=== PATIENT | female | born 1995 | race African-American/Black ===

== ENCOUNTER 2018-09-21 23:08 | Emergency (ER) | payer OTHER, MEDICAID ==
[~2018-09-21] VITALS: Ht 157.5 cm; Wt 90.7 kg
[~2018-09-21 23:08] MED LIST: ACTICIN 5% CREA60 G1 TOP; AMOXICILLIN500 M1 PO; ANAPROX DS550 MG PO; AZITHROMYCIN250 MG PO; BACTROBAN CREAM30 G1 TOP; CIPROFLOXACIN500 M1 PO; DARVOCET-N 1001 EACH PO; DOXYCYCLINE 10100 MG PO; FLAGYL500 MG PO; IBUPROFEN 800800 M1 PO; KEFLEX500 MG PO; NOHOMEMEDICATIONS; TRAMADOL 50 MG50 MG PO
[2018-09-21 23:55] LABS: URINE BILIRUBIN NEGATIVE (Negative); URINE BLOOD NEGATIVE (Negative); URINE CLARITY CLEAR; URINE COLOR YELLOW; URINE GLUCOSE-RANDOM NEGATIVE (Negative); URINE KETONES NEGATIVE (Negative); URINE LEUKOCYTES-REFLEX NEGATIVE (Negative); URINE NITRITE-REFLEX POSITIVE (Negative); URINE PROTEIN NEGATIVE (Negative); URINE SPECIFIC GRAVITY 1.015 (1.005-1.030); URINE UROBILINOGEN 0.2 E.U./dl (0.2-1.0)
[2018-09-22 00:11] LABS: ABSOLUTE BASOPHILS 0.1 thou/uL (0.0-0.2); ABSOLUTE EOSINOPHILS 0.1 thou/uL (0.0-0.7); ABSOLUTE LYMPHOCYTES 2.5 thou/uL (0.8-5.3); ABSOLUTE MONOCYTES 0.4 thou/uL (0.0-1.2); ABSOLUTE NEUTROPHILS 3.8 thou/uL (1.6-8.1); BASOPHILS 1.1 %; EOSINOPHILS 0.8 %; HEMATOCRIT 36.4 % (37.0-47.0); HEMOGLOBIN 12.5 gm/dL (12.0-15.0); LYMPHOCYTES 37.1 %; MCH 31.4 pg (26.0-34.0); MCHC 34.3 g/dL (28.0-37.0); MCV 91.6 fL (80.0-100.0); MONOCYTES 6.3 %; NUCLEATED RBCS 0 /100WBC; PLATELET COUNT* 362 thou/uL (150-400); POLYS 54.7 %; RBC 3.97 mil/uL (4.20-5.00); RDW-CV 13.4 % (10.5-14.5); WBC 6.8 thou/uL (4.0-11.0)
[2018-09-22 00:25] LABS: CALCIUM 8.8 mg/dL (8.5-10.1); CREATININE 0.8 mg/dL (0.6-1.3); POTASSIUM 3.4 mmol/L (3.5-5.1)
[2018-09-22 00:55] LABS: BACTERIA-REFLEX >30 Many /HPF (None Seen); CASTS None Seen /LPF (None Seen); CRYSTALS None Seen /LPF (None Seen); SQUAMOUS >10 Many /LPF (0-3); URINE RBC 0-2 Rare /HPF (0-2); URINE WBC-REFLEX 6-15 Few /HPF (0-5)
[2018-09-22] MEDS ORDERED: NORCO 5-325 TA1 EACH PO (00:59)
[2018-09-22] MEDS ORDERED: ZOFRAN ODT4 MG PO (00:59)
[2018-09-22] MEDS ORDERED: KEFLEX500 M1 PO (00:59)
[2018-09-22] MEDS ORDERED: FLAGYL 250 MG250 MG PO (01:02)
[2018-09-22 01:21] VITALS: BP 135/84
== END 2018-09-22 01:21 | disposition home or self-care (01) ==
LOC: M.ERS 23:08
PROVIDERS: Personal Emergency Response Attendant
DX: N39.0 Urinary tract infection, site not specified (principal); N76.0 Acute vaginitis; B96.89 Other specified bacterial agents as the cause of diseases classified elsewhere; Z98.890 Other specified postprocedural states

== ENCOUNTER 2018-10-26 11:35 | Emergency (ER) | payer OTHER, MEDICAID ==
[~2018-10-26] VITALS: Ht 157.5 cm; Wt 90.7 kg
[~2018-10-26 11:35] MED LIST changes: +FLAGYL 250 MG250 MG PO; +KEFLEX500 M1 PO; +NORCO 5-325 TA1 EACH PO; +ZOFRAN ODT4 MG PO
[2018-10-26 13:17] LABS: INFLUENZA A ANTIGEN None Detected (None Detect); INFLUENZA B ANTIGEN None Detected (None Detect)
[2018-10-26] MEDS ORDERED: KEFLEX500 M1 PO (13:18)
[2018-10-26] MEDS ORDERED: MEDROLDOSEPACK PO (13:19)
[2018-10-26] MEDS ORDERED: PROMETHAZINE V120 ML PO (13:19)
[2018-10-26] MEDS ORDERED: TESSALON PERLE100 MG PO (13:19)
[2018-10-26 13:39] VITALS: BP 127/79
== END 2018-10-26 13:40 | disposition home or self-care (01) ==
LOC: M.ERS 11:35
PROVIDERS: Physician Assistant
DX: J20.9 Acute bronchitis, unspecified (principal); Z98.890 Other specified postprocedural states

== ENCOUNTER 2019-09-13 05:17 | Emergency (ER) | payer OTHER ==
[~2019-09-13] VITALS: Ht 157.5 cm; Wt 95.3 kg
[~2019-09-13 05:17] MED LIST changes: +MEDROLDOSEPACK PO; +PROMETHAZINE V120 ML PO; +TESSALON PERLE100 MG PO
[2019-09-13 06:47] VITALS: BP 108/57
== END 2019-09-13 06:47 | disposition home or self-care (01) ==
LOC: M.ERS 05:17
DX: R10.84 Generalized abdominal pain (principal); R10.31 Right lower quadrant pain; R10.32 Left lower quadrant pain; Z98.890 Other specified postprocedural states

== ENCOUNTER 2020-08-04 09:08 | Emergency (ER) | payer OTHER, MEDICAID ==
[~2020-08-04] VITALS: Ht 157.5 cm; Wt 104.3 kg
[2020-08-04 09:51] LABS: ABSOLUTE BASOPHILS 0.1 thou/uL (0.0-0.2); ABSOLUTE EOSINOPHILS 0.1 thou/uL (0.0-0.7); ABSOLUTE LYMPHOCYTES 1.7 thou/uL (0.8-5.3); ABSOLUTE MONOCYTES 0.4 thou/uL (0.0-1.2); ABSOLUTE NEUTROPHILS 3.4 thou/uL (1.6-8.1); BASOPHILS 1.2 %; EOSINOPHILS 1.1 %; HEMATOCRIT 38.7 % (37.0-47.0); HEMOGLOBIN 12.8 gm/dL (12.0-15.0); LYMPHOCYTES 30.8 %; MCH 29.7 pg (26.0-34.0); MCHC 33.2 g/dL (28.0-37.0); MCV 89.5 fL (80.0-100.0); MONOCYTES 6.5 %; MPV 7.7 fl. (7.2-11.1); NUCLEATED RBCS 0 /100WBC; PLATELET COUNT* 355 thou/uL (150-400); POLYS 60.4 %; RBC 4.32 mil/uL (4.20-5.00); RDW-CV 13.5 % (10.5-14.5); WBC 5.7 thou/uL (4.0-11.0)
[2020-08-04 09:55] LABS: CALCIUM 9.2 mg/dL (8.5-10.1); CREATININE 0.8 mg/dL (0.6-1.3); POTASSIUM 4.2 mmol/L (3.5-5.1)
[2020-08-04 09:57] LABS: URINE BILIRUBIN NEGATIVE (Negative); URINE BLOOD NEGATIVE (Negative); URINE CLARITY CLEAR; URINE COLOR YELLOW; URINE GLUCOSE-RANDOM NEGATIVE (Negative); URINE KETONES NEGATIVE (Negative); URINE LEUKOCYTES-REFLEX NEGATIVE (Negative); URINE NITRITE-REFLEX NEGATIVE (Negative); URINE PROTEIN NEGATIVE (Negative); URINE SPECIFIC GRAVITY 1.025 (1.005-1.030); URINE UROBILINOGEN 0.2 E.U./dl (0.2-1.0)
[2020-08-04 09:59] LABS: ALBUMIN 3.3 g/dL (3.4-5.0); TOTAL BILIRUBIN 0.2 mg/dL (<0.1-1.0); TOTAL PROTEIN 7.4 g/dL (6.4-8.2)
[2020-08-04] MEDS ORDERED: BENTYL 10 MG CA10 M1 PO (10:58)
[2020-08-04] MEDS ORDERED: FLAGYL500 M1 PO (10:58)
[2020-08-04] MEDS ORDERED: ONDANSETRON HCL4 M2 PO (10:58)
[2020-08-04 11:45] VITALS: BP 130/66
== END 2020-08-04 11:48 | disposition home or self-care (01) ==
LOC: M.ERS 09:08
PROVIDERS: Family Medicine
DX: N76.0 Acute vaginitis (principal); B96.89 Other specified bacterial agents as the cause of diseases classified elsewhere; N83.202 Unspecified ovarian cyst, left side; N83.201 Unspecified ovarian cyst, right side

== ENCOUNTER 2020-11-11 23:26 | Emergency (ER) | payer OTHER, MEDICAID ==
[~2020-11-11] VITALS: Ht 157.5 cm; Wt 104.3 kg
[~2020-11-11 23:26] MED LIST changes: +BENTYL 10 MG CA10 M1 PO; +FLAGYL500 M1 PO; +ONDANSETRON HCL4 M2 PO
[2020-11-11 23:49] LABS: URINE BILIRUBIN NEGATIVE (Negative); URINE BLOOD NEGATIVE (Negative); URINE CLARITY SL HAZY; URINE COLOR YELLOW; URINE GLUCOSE-RANDOM NEGATIVE (Negative); URINE KETONES NEGATIVE (Negative); URINE LEUKOCYTES-REFLEX TRACE (Negative); URINE NITRITE-REFLEX NEGATIVE (Negative); URINE PROTEIN NEGATIVE (Negative); URINE SPECIFIC GRAVITY 1.025 (1.005-1.030); URINE UROBILINOGEN 0.2 E.U./dl (0.2-1.0)
[2020-11-11 23:57] LABS: BACTERIA-REFLEX >30 Many /HPF (None Seen); CASTS None Seen /LPF (None Seen); CRYSTALS None Seen /LPF (None Seen); MUCUS 4-6 Moderate strn/LPF (None Seen); SQUAMOUS >10 Many /LPF (0-3); URINE RBC 0-2 Rare /HPF (0-2); URINE WBC-REFLEX 6-15 Few /HPF (0-5)
[2020-11-12] MEDS ORDERED: ZOFRAN ODT4 MG PO (00:44)
[2020-11-12] MEDS ORDERED: CIPROFLOXACIN500 M1 PO (00:44)
[2020-11-12] MEDS ORDERED: PERCOCET 7.5-31 EAC1 PO (00:44)
[2020-11-12 00:58] VITALS: BP 128/76
== END 2020-11-12 00:58 | disposition home or self-care (01) ==
LOC: M.ERS 23:26
PROVIDERS: Emergency Medicine
DX: N39.0 Urinary tract infection, site not specified (principal); R19.7 Diarrhea, unspecified; Z98.890 Other specified postprocedural states

== ENCOUNTER 2021-01-15 18:56 | Emergency (ER) | payer OTHER, MEDICAID ==
[~2021-01-15] VITALS: Ht 157.5 cm; Wt 108.9 kg
[~2021-01-15 18:56] MED LIST changes: +PERCOCET 7.5-31 EAC1 PO
[2021-01-15 19:53] LABS: ABSOLUTE BASOPHILS 0.1 thou/uL (0.0-0.2); ABSOLUTE LYMPHOCYTES 1.8 thou/uL (0.8-5.3); ABSOLUTE MONOCYTES 0.3 thou/uL (0.0-1.2); ABSOLUTE NEUTROPHILS 5.8 thou/uL (1.6-8.1); BASOPHILS 0.9 %; EOSINOPHILS 0.1 %; HEMATOCRIT 38.6 % (37.0-47.0); HEMOGLOBIN 13.5 gm/dL (12.0-15.0); LYMPHOCYTES 22.8 %; MCH 31.9 pg (26.0-34.0); MCHC 34.9 g/dL (28.0-37.0); MCV 91.5 fL (80.0-100.0); MPV 7.5 fl. (7.2-11.1); NUCLEATED RBCS 0 /100WBC; PLATELET COUNT* 366 thou/uL (150-400); POLYS 72.2 %; RBC 4.22 mil/uL (4.20-5.00); RDW-CV 13.4 % (10.5-14.5)
[2021-01-15 19:55] LABS: URINE BILIRUBIN NEGATIVE (Negative); URINE BLOOD 3+ (Negative); URINE COLOR YELLOW; URINE GLUCOSE-RANDOM NEGATIVE (Negative); URINE KETONES NEGATIVE (Negative); URINE LEUKOCYTES-REFLEX NEGATIVE (Negative); URINE NITRITE-REFLEX NEGATIVE (Negative); URINE PROTEIN NEGATIVE (Negative); URINE UROBILINOGEN 0.2 E.U./dl (0.2-1.0)
[2021-01-15 19:57] LABS: URINE CLARITY HAZY
[2021-01-15 20:00] LABS: CALCIUM 9.1 mg/dL (8.5-10.1); CREATININE 0.7 mg/dL (0.6-1.3); POTASSIUM 4.2 mmol/L (3.5-5.1)
[2021-01-15 20:03] LABS: BACTERIA-REFLEX None Seen /HPF (None Seen); SQUAMOUS 4-10 Moderate /LPF (0-3); URINE RBC 0-2 Rare /HPF (0-2); URINE WBC-REFLEX None Seen /HPF (0-5)
[2021-01-15 20:04] LABS: CASTS None Seen /LPF (None Seen); CRYSTALS None Seen /LPF (None Seen)
[2021-01-15 20:05] LABS: ALBUMIN 3.6 g/dL (3.4-5.0); TOTAL BILIRUBIN 0.2 mg/dL (<0.1-1.0); TOTAL PROTEIN 7.9 g/dL (6.4-8.2)
[2021-01-15] MEDS ORDERED: TRANSDERM-SCOP1 EACH TRANSDERM (20:13)
[2021-01-15] MEDS ORDERED: NAPROSYN500 MG PO (20:13)
[2021-01-15 20:26] VITALS: BP 125/64
== END 2021-01-15 20:28 | disposition home or self-care (01) ==
LOC: M.ERS 18:56
PROVIDERS: Physician Assistant
DX: R42 Dizziness and giddiness (principal); N94.6 Dysmenorrhea, unspecified

== ENCOUNTER 2021-04-19 23:52 | Emergency (ER) | payer OTHER, MEDICAID ==
[~2021-04-19] VITALS: Ht 157.5 cm; Wt 90.7 kg
[~2021-04-19 23:52] MED LIST changes: +NAPROSYN500 MG PO; +TRANSDERM-SCOP1 EACH TRANSDERM
[2021-04-20 00:35] LABS: ABSOLUTE BASOPHILS 0.1 thou/uL (0.0-0.2); ABSOLUTE EOSINOPHILS 0.1 thou/uL (0.0-0.7); ABSOLUTE LYMPHOCYTES 4.5 thou/uL (0.8-5.3); ABSOLUTE MONOCYTES 0.5 thou/uL (0.0-1.2); ABSOLUTE NEUTROPHILS 3.6 thou/uL (1.6-8.1); BASOPHILS 1.1 %; EOSINOPHILS 1.1 %; HEMATOCRIT 37.5 % (37.0-47.0); HEMOGLOBIN 12.8 gm/dL (12.0-15.0); LYMPHOCYTES 50.6 %; MCHC 34.3 g/dL (28.0-37.0); MCV 90.3 fL (80.0-100.0); MONOCYTES 6.1 %; MPV 7.7 fl. (7.2-11.1); NUCLEATED RBCS 0 /100WBC; PLATELET COUNT* 382 thou/uL (150-400); POLYS 41.1 %; RBC 4.15 mil/uL (4.20-5.00); RDW-CV 12.9 % (10.5-14.5); WBC 8.8 thou/uL (4.0-11.0)
[2021-04-20 00:36] LABS: CREATININE 0.9 mg/dL (0.6-1.3); POTASSIUM 4.2 mmol/L (3.5-5.1)
[2021-04-20 00:40] LABS: ALBUMIN 3.4 g/dL (3.4-5.0); TOTAL BILIRUBIN 0.1 mg/dL (<0.1-1.0); TOTAL PROTEIN 7.5 g/dL (6.4-8.2)
[2021-04-20 01:46] LABS: URINE BILIRUBIN NEGATIVE (Negative); URINE BLOOD NEGATIVE (Negative); URINE CLARITY CLEAR; URINE COLOR YELLOW; URINE GLUCOSE-RANDOM NEGATIVE (Negative); URINE KETONES NEGATIVE (Negative); URINE LEUKOCYTES-REFLEX NEGATIVE (Negative); URINE NITRITE-REFLEX NEGATIVE (Negative); URINE PROTEIN TRACE (Negative); URINE SPECIFIC GRAVITY >= 1.030 (1.005-1.030); URINE UROBILINOGEN 0.2 E.U./dl (0.2-1.0)
[2021-04-20 01:54] LABS: AMP/METHAMP Negative (Negative); BARBITURATES Negative (Negative); BENZODIAZEPINES Negative (Negative); COCAINE Negative (Negative); METHADONE Negative (Negative); OPIATES Negative (Negative); PCP Negative (Negative); THC POSITIVE (Negative)
[2021-04-20] MEDS ORDERED: HYDROCODON-ACE1 EAC7 PO (02:05)
[2021-04-20] MEDS ORDERED: ZOFRAN ODT4 MG PO (02:05)
[2021-04-20 02:30] VITALS: BP 156/81
== END 2021-04-20 02:32 | disposition home or self-care (01) ==
LOC: M.ERS 23:52
PROVIDERS: Personal Emergency Response Attendant
DX: R11.2 Nausea with vomiting, unspecified (principal); R10.30 Lower abdominal pain, unspecified